=== PATIENT | female | born 1990 | race American Indian/Alaskan Native ===

== ENCOUNTER 2018-02-06 22:22 | Emergency (ER) | payer OTHER ==
[2018-02-06] MEDS ORDERED: TYLENOL ONE (23:47)
[2018-02-06] MEDS ORDERED: TYLENOL PO ONE (23:49)
[2018-02-06] MEDS ORDERED: ZOFRAN ODT PO ONE (23:49)
[2018-02-06] MEDS ORDERED: ZOFRAN ODT ONE (23:50)
[2018-02-07 03:57] VITALS: BP 120/80
[2018-02-07] MEDS ORDERED: MOTRIN PO ONE ×2 (04:32→04:40)
--- NOTE | 2018-02-07 04:38 | Emergency Department Report ---
- General Chief Complaint: Upper Respiratory Infection Stated Complaint: FLU LIKE SX Time Seen by Provider: 02/07/18 04:32 Source: patient Mode of arrival: Ambulatory Limitations: No Limitations - History of Present Illness Initial Comments: 27-year-old female presents to the emergency room for complaint of dry cough bodyaches nausea vomiting and sweating chills fever. Patient reports her MAXIMUM TEMPERATURE at home was 102. Patient purchase can't keep any food down 2 days. She reports no past medical history currently takes no medications has no known drug allergies. MD Complaint: fever, cough, other (body aches) -: days(s) (2) Severity: moderate Consistency: constant Improves With: nothing Worsens With: nothing Associated Symptoms: fever, chills, headache, cough, nausea, vomiting, right sweats. denies: abdominal pain - Related Data Previous Rx's Medication Instructions Recorded Last Taken Type Ferrous Gluconate [Fergon] 325 mg PO QDAY #20 tablet 03/05/13 Unknown Rx Ibuprofen [Motrin 800 MG tab] 800 mg PO TID #30 tablet 03/05/13 Unknown Rx medroxyPROGESTERone ACETATE 10 mg PO QDAY #5 tablet 03/05/13 Unknown Rx [Provera] Ibuprofen [Motrin 600 MG tab] 600 mg PO Q8H PRN #21 tablet 02/07/18 Unknown Rx Oseltamivir [Tamiflu] 75 mg PO BID #10 cap 02/07/18 Unknown Rx Allergies Allergy/AdvReac Type Severity Reaction Status Date / Time No Known Allergies Allergy Unverified 03/05/13 10:51 ED Review of Systems ROS: Stated complaint: FLU LIKE SX Other details as noted in HPI Comment: All other systems reviewed and negative Constitutional: chills, fever, malaise Respiratory: cough Gastrointestinal: nausea, vomiting. denies: abdominal pain, diarrhea Musculoskeletal: myalgia Neurological: headache, weakness ED Past Medical Hx - Past Medical History Previous Medical History?: Yes Hx Headaches / Migraines: Yes - Surgical History Past Surgical History?: No - Social History Smoking Status: Never Smoker - Medications Home Medications: Home Medications Medication Instructions Recorded Confirmed Last Taken Type Ferrous Gluconate [Fergon] 325 mg PO QDAY #20 tablet 03/05/13 Unknown Rx Ibuprofen [Motrin 800 MG tab] 800 mg PO TID #30 tablet 03/05/13 Unknown Rx medroxyPROGESTERone ACETATE 10 mg PO QDAY #5 tablet 03/05/13 Unknown Rx [Provera] Ibuprofen [Motrin 600 MG tab] 600 mg PO Q8H PRN #21 tablet 02/07/18 Unknown Rx Oseltamivir [Tamiflu] 75 mg PO BID #10 cap 02/07/18 Unknown Rx ED Physical Exam - General Limitations: No Limitations General appearance: alert, in no apparent distress - Head Head exam: Present: atraumatic, normocephalic - Eye Eye exam: Present: normal appearance - ENT ENT exam: Present: mucous membranes moist - Expanded ENT Exam Expanded Throat exam: Positive: tonsillar erythema, tonsillomegaly - Neck Neck exam: Present: normal inspection - Respiratory Respiratory exam: Present: normal lung sounds bilaterally. Absent: respiratory distress - Cardiovascular Cardiovascular Exam: Present: regular rate, normal rhythm. Absent: systolic murmur, diastolic murmur, rubs, gallop - GI/Abdominal GI/Abdominal exam: Present: soft, normal bowel sounds - Extremities Exam Extremities exam: Present: normal inspection - Back Exam Back exam: Present: normal inspection - Neurological Exam Neurological exam: Present: alert, oriented X3 - Psychiatric Psychiatric exam: Present: normal affect, normal mood - Skin Skin exam: Present: warm, dry, intact, normal color. Absent: rash ED Course Vital Signs 02/06/18 02/06/18 02/07/18 23:33 23:50 03:56 Temperature 99.8 F H 98.4 F Pulse Rate 113 H 99 H Respiratory 20 20 15 Rate Blood Pressure 127/86 Blood Pressure 120/80 [Right] O2 Sat by Pulse 100 98 Oximetry ED Medical Decision Making - Medical Decision Making Patient has been evaluated by this provider in fast track. Patient was given Tylenol in triage. Patient will be given ibuprofen 500 mg in fast track. I discussed the patient we will treat her for flu Patient be given Tamiflu 75 mg by mouth twice a day for 5 days. Discussed the patient to take Tylenol or Motrin for fever and body aches. I discussed the patient to increase her fluid intake and advance her diet as tolerated. I discussed the patient to follow up with her primary care provider if symptoms persist or gets worse. Critical care attestation.: If time is entered above; I have spent that time in minutes in the direct care of this critically ill patient, excluding procedure time. ED Disposition Clinical Impression: Flu-like symptoms Disposition: DC-01 TO HOME OR SELFCARE Is pt being admited?: No Does the pt Need Aspirin: No Condition: Stable Instructions: Viral Syndrome (ED) Additional Instructions: Please continue with Tylenol and Motrin for fever and body aches. Please take Tamiflu as prescribed. Please increase her fluid intake and advance her diet as tolerated. You can take [id number] cough medication as needed. Follow up with a primary care provider symptoms persist or gets worse Prescriptions: Ibuprofen [Motrin 600 MG tab] 600 mg PO Q8H PRN #21 tablet PRN Reason: Pain Oseltamivir [Tamiflu] 75 mg PO BID #10 cap Referrals: PRIMARY CARE, [Primary Care Provider] - 3-5 Days Forms: Accompanied Note
== END 2018-02-07 05:08 | disposition home or self-care (01) ==
LOC: ED 22:22
DX: R05 Cough (principal); R50.9 Fever, unspecified; M79.18 Myalgia, other site; G43.909 Migraine, unspecified, not intractable, without status migrainosus
CPT/HCPCS: 99282; Q0162